=== PATIENT | male | born 1955 | race Caucasian/White ===

== ENCOUNTER 2023-12-14 09:40 | Outpatient (CLI) | payer OTHER, SELFPAY ==
[2023-12-14] MEDS: PERFLUTREN LIPID MICROSPHERES 2 ML VIAL IV (13:55)
== END 2023-12-14 09:41 | disposition home or self-care (01) ==
LOC: RAD 09:44
PROVIDERS: Visit Provider Chiropractor
DX: I25.10 Atherosclerotic heart disease of native coronary artery without angina pectoris (principal)
CPT/HCPCS: 93306; Q9957